=== PATIENT | male | born 1970 | race Caucasian/White ===

== ENCOUNTER 2018-10-24 11:57 | Emergency (ER) | payer BC ==
--- NOTE | 2018-10-24 13:02 | EDPHY ---
H & P Stated Complaint: RIGHT LEG SWELLING STARTED 2 DAYS AGO Time Seen by Provider: 10/24/18 12:16 HPI/ROS: CHIEF COMPLAINT: Right leg swelling HISTORY OF PRESENT ILLNESS: 48-year-old male presents emergency department at the request of urgent care for further evaluation of right leg swelling. Patient noticed the legs being swollen last night and this morning. He reports that he is here in [place] attending a training session. For the last 3 weeks he has mostly been sitting. He drove back to [facility] last week , 7 days ago, and then dural from [facility] back to [place] 4 days ago. He denies any pain in the leg but states that it feels full and like there is a stretch in the back of the calf. No erythema or fever. No trauma. No shortness of breath or chest pain. No headache or lightheadedness. REVIEW OF SYSTEMS: A comprehensive 10 system review of systems was reviewed and is otherwise negative aside from elements mentioned in the history of present illness and medical decision making. PAST MEDICAL HISTORY: Reflux and varicose veins. No history of diabetes, hypertension, DVT, PE. No family history of thromboembolic disease. SOCIAL HISTORY: Nonsmoker, occasional alcohol. Denies illicit drug use. VITAL SIGNS Reviewed by me. 181/111, 79, 18, 93% on room air. GENERAL: Moderately obese, pleasant, no respiratory distress. HEENT: Atraumatic. Eyes: No icterus, no injection. Mouth: moist mucous membranes. No erythema or lesions. Neck: supple with no adenopathy. LUNGS: Clear to auscultation bilaterally, no wheezes, rhonchi or rales. CARDIAC: Regular rate and rhythm, no rubs, murmurs or gallops. ABDOMEN: Soft, nontender, nondistended, bowel sounds normal. BACK: No CVA tenderness. EXTREMITIES: No trauma. Right lower extremity: Significant swelling from the knee to the foot. There is an old scar with atrophic skin covering the medial lower half of calf. Patient relates this to a scrape several years ago that left a scar. No pitting edema. Foot is warm and dry. Normal pulses. NEURO: Alert and oriented, grossly nonfocal. SKIN: Warm and dry, no rash. PSYCHIATRIC: Normal mentation, no agitation. - Medical/Surgical History Other PMH: GERD, APPY - Social History Smoking Status: Former smoker Constitutional: Initial Vital Signs Temperature (C) 37.0 C 10/24/18 12:08 Heart Rate 79 10/24/18 12:08 Respiratory Rate 18 10/24/18 12:08 Blood Pressure 183/111 H 10/24/18 12:08 O2 Sat (%) 93 10/24/18 12:08 O2 Delivery Mode Room Air Allergies/Adverse Reactions: No Known Allergies Allergy (Unverified 10/24/18 12:08) Home Medications: Medication Instructions Recorded Fluticasone Nasal 10/24/18 Omeprazole 10/24/18 Medical Decision Making - Diagnostics Imaging Results: Imaging Impressions Extremity Venous Study 10/24/18 12:25 Impression: Negative for right lower extremity DVT. Findings and recommendations discussed with Myrna Chong MD at 1259 hour, 10/24/2018. Imaging: Discussed imaging studies w/ call center recruiter Radiologist ED Course/Re-evaluation: 48-year-old male presents with right leg swelling. No evidence of cellulitis. No edema. Ultrasound negative for DVT. Patient does have varicose veins. Discussed the results of the ultrasound with the patient. Advised to walk as much as possible while he is at the training, elevate the leg at night, return to the emergency department if his symptoms are not improving as expected, and observe for fevers, redness, increased swelling. He will follow up with his primary care physician when he returns to [place]. Differential Diagnosis: Differential diagnosis for the patient's primary complaint of leg swelling was considered including but not limited to cellulitis, hypoalbuminemia, congestive heart failure, cor pulmonale, chronic venous stasis and DVT. Departure - Departure Disposition: Home, Routine, Self-Care Clinical Impression: Right leg swelling Varicose vein of leg Qualifiers: Varicose vein complication: other Laterality: right Qualified Code(s): I83.891 - Varicose veins of right lower extremity with other complications Condition: Good Instructions: Leg Edema (ED) Additional Instructions: There is no blood clot identified in your leg. I would recommend you maximize the opportunities to be up and about and walking over the next several days. Keep your leg elevated when you or sitting if possible. Please follow up with your primary care physician when you return to [facility] for further evaluation. Return to the emergency department if you developed shortness of breath, chest pain, fever, redness or swelling in the leg, or other concerns. Referrals: NONE *PRIMARY CARE P,. [Primary Care Provider] - As per Instructions
[2018-10-24 13:08] VITALS: BP 142/96
== END 2018-10-24 13:36 | disposition home or self-care (01) ==
LOC: CED 11:57
DX: I83.891 Varicose veins of right lower extremity with other complications (principal)
CPT/HCPCS: 93971-PO; 99284-ER